=== PATIENT | female | born 1985 | race Caucasian/White ===

== ENCOUNTER 2024-02-22 08:14 | Emergency (ER) | payer BC, SELFPAY ==
--- NOTE | 2024-02-22 08:51 | ED.MUSCINJ ---
HPI-Injury
General
Chief Complaint: Musculo-Skeletal Complaint
Source: patient
Time Seen by Provider: 02/22/24 08:22
History of Present Illness-Injury
Initial Injury comments:
38yo right hand dominant female presenting for evaluation of left elbow pain. Patient was at work this morning about an hour ago. She slipped on a wet floor and landed on her bent left elbow. She heard a crack during the fall. She had some numbness
in the hand immediately after the fall which is gradually subsiding. She still has some tingling in her fingers. No other injuries sustained during the fall. No prior injuries to the left elbow.
Phy Exam
General Physical Exam
General Presentation: well appearing and no apparent distress
General age: appears stated age
General Skin: warm and dry
General Habitus: normal
General Mental: alert
ENT Exam
ENT Exam: normocephalic
Neurological Exam
Neurological Exam: alert
[place] Coma Scale
Eye Opening: Spontaneous
Verbal Response: Oriented
Motor Response: Obeys Commands
GCS Total Score: 15
Musculoskeletal Exam
Musculoskeletal Exam: other (L elbow: No deformity, soft tissue swelling, or ecchymosis noted. +Tenderness to lateral aspect of joint. ROM mildly decreased 2/2 pain. ROM of wrist and shoulder intact. 2+ radial pulse and sensation intact.)
Skin Exam
Skin Exam: normal color and warm/dry
Psychiatric Exam
Psychiatric Exam: normal mood/affect
Injury Course
Orders/Labs/Results
Orders:
Orders
02/22/24 08:20
Elbow, 3 view, Left [CR Elbow - Left Min 3 Views ] Urgent
Comment:
Reason For Exam: pt fell at work and landed on left elbow
MDM/Problems Addressed
Differential Diagnosis Includes:
38yoF here with L elbow pain after an injury. No deformity noted on exam. ROM is mildly decreased. LUE is neurovascularly intact. Differential diagnosis includes sprain, fracture, dislocation
X-rays of L elbow obtained. X-rays negative for acute osseous abnormalities. Supportive care discussed including RICE and PRN Tylenol/ibuprofen. Advised f/u with orthopedics if symptoms persist. She was discharged in stable condition.
*Critical Care Note
Total Time (30-74mins, 75-104mins- exclusive of procedures): Not Applicable
ED Attending Note
-
Portions of this chart may have been created with voice recognition software.� Occasional wrong word or��sound alike� substitutions may have occurred due to the inherent limitations of voice recognition software.
Discharge Plan
Departure
Patient Disposition: Home (Routine Discharge)
Date of Disposition: 02/22/24
Time of Disposition: 08:59
Patient with high blood pressure during this ER visit?: Yes
Discharge Problem:
Injury of left elbow
Instructions: Elbow Sprain ED
Referrals:
Ravin Nolasco MD [Active] -
Activity Restrictions/Additional Instructions:
Rest, ice, compress, and elevate your elbow. Take Tylenol and ibuprofen as needed for pain.
Please follow-up with orthopedics if symptoms persist.
Interventions
Interventions:
*Risk Screen - Suicide Last Done: 02/22/24 08:15
*Neglect/Abuse Screening Last Done: 02/22/24 08:15
*Nursing Disposition Last Done: 02/22/24 09:18
ED-Musculoskeletal Assessment Last Done: 02/22/24 09:18
Discharge Date and Time
Discharge Date/Time: 02/22/24 09:19
Print Language: ARMENIAN
[2024-02-22 09:10] VITALS: BP 128/77
== END 2024-02-22 09:19 | disposition home or self-care (01) ==
LOC: EMR 08:14
PROVIDERS: EMERGENCY PHYSICIAN Emergency Medicine; FAMILY PHYSICIAN Family Medicine
DX: S59.902A Unspecified injury of left elbow, initial encounter (principal); R20.0 Anesthesia of skin; R20.2 Paresthesia of skin; S50.02XA Contusion of left elbow, initial encounter; M79.89 Other specified soft tissue disorders; W01.0XXA Fall on same level from slipping, tripping and stumbling without subsequent striking against object, initial encounter; Y93.89 Activity, other specified; Y92.89 Other specified places as the place of occurrence of the external cause; Y99.0 Civilian activity done for income or pay; R03.0 Elevated blood-pressure reading, without diagnosis of hypertension
CPT/HCPCS: 99283; 73080

== ENCOUNTER 2024-04-04 10:23 | Emergency (ER) | payer BC, SELFPAY ==
[2024-04-04 10:34] VITALS: BP 143/80
--- NOTE | 2024-04-04 10:51 | ED.GENMED ---
History of Present Illness
<Holly Alcaraz PA-C - Last Filed: 04/04/24 15:34>
General
Chief Complaint: Problems
Source: patient
Exam Limitations: none
Time Seen by Provider: 04/04/24 10:39
Nursing documentation reviewed up to this point in time: agreed with
History of Present Illness
History of Present Illness:
38-year-old female presents emergency department today with concerns of vaginal bleeding for 2 the past 2 days. Patient states that this first started as light pink discharge that she noticed when she wiped when she used the bathroom. Patient
states that the bleeding progressed to kaitlyn drops of blood that she noticed in her underwear. Patient states that earlier today, the bleeding stopped. She has had mild cramping earlier but the cramping did resolve. She denies any abdominal pain,
nausea, vomiting. She denies any burning with urination. She denies low back pain. Her last menstrual period was February 24. She has an appointment with her OBGYN on Apr 26.
Review of Systems
<Holly Alcaraz PA-C - Last Filed: 04/04/24 15:34>
Review of Systems
All Other Systems: ROS reviewed and negative except as documented in HPI and ROS
Phy Exam
<Holly Alcaraz PA-C - Last Filed: 04/04/24 15:34>
Physical Exam
Physical Exam:
General: Patient is well appearing and in no acute distress; non-toxic
Skin: Warm and dry, no rashes or lesions
Head: Normocephalic, atraumatic
Eyes: Sclera non-icteric. EOMs intact.
Cardiac: Regular rate and rhythm, no murmurs
Peripheral Vascular: No lower extremity swelling or edema
Pulm: Normal respiratory effort
Abdomen: No abdominal tenderness to palpation
Neuro: CN II-XII intact, no focal neurologic deficits.
Psychiatric: Appropriate mood and affect.
Course
<Holly Alcaraz PA-C - Last Filed: 04/04/24 15:34>
Orders/Labs/Results
Orders:
Orders
04/04/24 10:36
Test Result ONCE
04/04/24 11:02
US W Transvaginal Urgent
Reason For Exam: vaginal bleeding, intermittent pelvic pain
04/04/24 11:06
Type And Crossmatch [Type+Screen] Urgent
Complete Blood Count/With Diff Urgent
Comprehensive Metabolic Panel Urgent
HCG, Beta Quantitative [Beta HCG Quantitative] Urgent
Is this a screen?: No
HCG, Serum Qualitative Screen Urgent
Urinalysis Reflex To Culture Urgent
Date Specimen was Collected: 04/04/24
Time Specimen was Collected: 10:36
Urine Microscopic Reflex Cult Urgent
04/04/24 14:13
ABO2 Urgent
BBK Wristband Number:
Associate notified that ABO2 has been ordered: [id number]
Date: 04/04/24
Time: 11:38
Special Education Math Teacher ID: [id number]
Abnormal Lab Results
04/04/24
11:06
Hgb 11.9 L g/dL
(12.0-16.0)
MCV 76.1 L fL
(81.0-99.0)
MCH 24.1 L pg
(27.0-31.0)
MCHC 31.7 L g/dL
(33.0-37.0)
RDW 17.5 H %
(11.5-14.5)
Ur Occult Blood Reflex 1+ A
(Negative)
Leukocyte Esterase Rfl Trace A
(Negative)
Urine RBC 3-6 A /HPF
(0-2)
Urine Bacteria (Reflex) Few A
(Negative)
04/04/24 11:06
04/04/24 11:06
Vital Signs
Initial and Last Documented VS:
Initial Vital Signs
Temp Pulse Resp BP Pulse Ox
98.5 F 86 16 143/80 98
04/04/24 10:34 04/04/24 10:34 04/04/24 10:34 04/04/24 10:34 04/04/24 10:34
Last Documented Vital Signs
Temp Pulse Resp BP Pulse Ox
98.5 F 72 18 119/78 100
04/04/24 10:34 04/04/24 13:49 04/04/24 13:49 04/04/24 13:49 04/04/24 13:49
Information
Weeks gestation: Weeks: (5 weeks 1 day)
Location: Location: (intrauterine)
<Bill Ellis, DO - Last Filed: 04/05/24 13:11>
Orders/Labs/Results
Orders:
Orders
04/04/24 10:36
Test Result ONCE
04/04/24 11:02
US W Transvaginal Urgent
Reason For Exam: vaginal bleeding, intermittent pelvic pain
04/04/24 11:06
Type And Crossmatch [Type+Screen] Urgent
Complete Blood Count/With Diff Urgent
Comprehensive Metabolic Panel Urgent
HCG, Beta Quantitative [Beta HCG Quantitative] Urgent
Is this a screen?: No
HCG, Serum Qualitative Screen Urgent
Urinalysis Reflex To Culture Urgent
Date Specimen was Collected: 04/04/24
Time Specimen was Collected: 10:36
Urine Microscopic Reflex Cult Urgent
04/04/24 14:13
ABO2 Urgent
BBK Wristband Number:
Associate notified that ABO2 has been ordered: [id number]
Date: 04/04/24
Time: 11:38
Special Education Math Teacher ID: [id number]
Abnormal Lab Results
04/04/24
11:06
Hgb 11.9 L g/dL
(12.0-16.0)
MCV 76.1 L fL
(81.0-99.0)
MCH 24.1 L pg
(27.0-31.0)
MCHC 31.7 L g/dL
(33.0-37.0)
RDW 17.5 H %
(11.5-14.5)
Ur Occult Blood Reflex 1+ A
(Negative)
Leukocyte Esterase Rfl Trace A
(Negative)
Urine RBC 3-6 A /HPF
(0-2)
Urine Bacteria (Reflex) Few A
(Negative)
04/04/24 11:06
04/04/24 11:06
Vital Signs
Initial and Last Documented VS:
Initial Vital Signs
Temp Pulse Resp BP Pulse Ox
98.5 F 86 16 143/80 98
04/04/24 10:34 04/04/24 10:34 04/04/24 10:34 04/04/24 10:34 04/04/24 10:34
Last Documented Vital Signs
Temp Pulse Resp BP Pulse Ox
98.5 F 72 18 119/78 100
04/04/24 10:34 04/04/24 13:49 04/04/24 13:49 04/04/24 13:49 04/04/24 13:49
<Holly Alcaraz PA-C - Last Filed: 04/04/24 15:34>
MDM/Problems Addressed
Differential Diagnosis Includes:
see below
MDM/Problems Addressed:
NUMBER AND COMPLEXITY OF PROBLEMS ADDRESSED AT THE ENCOUNTER
� Chronic conditions affecting care: n/a
� Acute Exacerbation and/or Progression of Chronic Illness:
� Differential Diagnosis includes: implantation bleeding, ectopic , spontaneous
AMOUNT AND/OR COMPLEXITY OF DATA TO BE REVIEWED AND ANALYZED
� I performed an independent evaluation of and my interpretation is:
Laboratory Studies: HCG 3339.00 mIU/ml
Other:
� Review of other/old records: Reviewed previous ER physician documentation from 02/22/2024, patient seen for left elbow pain
� Clinical information was obtained by an independent historian: n/a
� Prescriptions/Medications Considered but not given: none
� Further testing considered but not performed: n/a
RISK OF COMPLICATIONS AND/OR MORBIDITY OR MORTALITY OF PATIENT MANAGEMENT
� Social determinants of health affecting care: none
� Discussion with other providers: ER attending
� Escalation of care including admission/observation vs risk of discharge considered:
38-year-old female G2, P1 presents emergency today with concerns of vaginal bleeding. She is confirmed by home test. She has not yet seen her HEEL BLACKER. She follows with [facility]. She is well-appearing on exam in no acute
distress. She has no abdominal tenderness palpation. Her bleeding has stopped upon arrival to emergency department. Had a urinalysis which is not concerning for infection, she is O+, no indication for RhoGAM at this time. Intrauterine
gestational sac in the endometrial canal with no evidence of pole or yolk sac. Did discuss findings with patient. Discussed prompt/sooner follow-up with her HEEL BLACKER. Patient stable for discharge.
<Holly Alcaraz PA-C - Last Filed: 04/04/24 15:34>
*Critical Care Note
Total Time (30-74mins, 75-104mins- exclusive of procedures): Not Applicable
ED Attending Note
<Holly Alcaraz PA-C - Last Filed: 04/04/24 15:34>
-
Portions of this chart may have been created with voice recognition software.� Occasional wrong word or��sound alike� substitutions may have occurred due to the inherent limitations of voice recognition software.
<Bill Ellis DO - Last Filed: 04/05/24 13:11>
ED Attending Note
Patient seen and examined by attending physician: Yes
I performed a history and physical exam of patient and discussed management with resident, I reviewed resident's note and agree with documented findings and plan of care.: Yes
ED Attending Note:
I reviewed and agree with plan by Holly Alcaraz. My exam reveals 38-year-old female in no acute distress. Ultrasound and hCG pending.
Discharge Plan
Departure
Patient Disposition: Home (Routine Discharge)
Date of Disposition: 04/04/24
Time of Disposition: 15:08
Patient with high blood pressure during this ER visit?: Yes
Condition: Good
Discharge Problem:
Vaginal bleeding, First trimester
Instructions: Bleeding in early
Referrals:
Narciso Ontiveros DO [Family Provider] -
Stand Alone Forms: Return to Work
Activity Restrictions/Additional Instructions:
Please call your HEEL BLACKER to schedule a sooner follow-up appointment. You will need prompt repeat beta hcg levels.
PLEASE RETURN EMERGENCY DEPARTMENT SHOULD YOU DEVELOP LIGHTHEADEDNESS, DIZZINESS, PERSISTENT BLEEDING, GOING THROUGH MORE THAN 1-2 PADS PER HOUR, ABDOMINAL PAIN, CHEST PAIN, SHORTNESS OF BREATH, OR ANY OTHER SIGNS OR SYMPTOMS CONCERNING TO YOU.
Interventions
Interventions:
*Risk Screen - Suicide Last Done: 04/04/24 10:34
*General Assessment Last Done: 04/04/24 11:11
*Neglect/Abuse Screening Last Done: 04/04/24 10:34
ED- Fall Risk Assessment Last Done: 04/04/24 11:11
*ED COVID-19 Vaccine History Last Done: 04/04/24 11:11
*Nursing Disposition Last Done: 04/04/24 15:53
ED-Female Genitourinary Assessment Last Done: 04/04/24 11:11
Discharge Date and Time
Discharge Date/Time: 04/04/24 15:54
Print Language: YI
--- NOTE | 2024-04-04 11:00 | EDRN ---
Oliver Barakat PA in to see pt at this time.
[2024-04-04 11:17] LABS: % Basophils 0.7 % (0-2); % Eosinophils 1.2 % (0-6); % Immature Granulocytes 0.3 % (0-0.5); % Lymphocytes 23.3 % (20.5-51.1); % Monocytes 7.3 % (1.7-9.3); % Neutrophils 67.2 % (42.2-75.2); Absolute Basophils 0.1 10^3/uL (0-0.2); Absolute Eosinophils 0.1 10^3/uL (0-0.7); Absolute Lymphocytes 1.8 10^3/uL (1.2-3.4); Absolute Monocytes 0.6 10^3/uL (0.1-0.6); Absolute Neutrophils 5.2 10^3/uL (1.4-6.5); Hematocrit 37.5 % (37.0-47.0); Hemoglobin 11.9 g/dL (12.0-16.0); Mean Corp Hgb Conc. 31.7 g/dL (33.0-37.0); Mean Corpuscular Hgb 24.1 pg (27.0-31.0); Mean Corpuscular Volume 76.1 fL (81.0-99.0); Mean Platelet Volume 9.7 fL (7.4-10.4); Nucleated Red Blood Cells % 0 %; Platelet Count 342 10^3/uL (130-400); Red Blood Cell Count 4.93 10^6/uL (4.20-5.40); Red Cell Dist. Width 17.5 % (11.5-14.5); White Blood Cell Count 7.7 10^3/uL (4.8-10.8)
[2024-04-04 11:20] LABS: Urine Albumin Negative (Neg - Trace); Urine Bilirubin Negative (Negative); Urine Character Clear (Clear); Urine Color Yellow; Urine Glucose Negative (Negative); Urine Ketone Negative (Negative); Urine Leukocyte Trace (Negative); Urine Nitrite Negative (Negative); Urine Occult Blood 1+ (Negative); Urine Urobilinogen Negative (Neg - 1+)
[2024-04-04 11:25] VITALS: BMI 38.0
[2024-04-04 11:31] LABS: HCG, Serum Qualitative Screen Positive
--- NOTE | 2024-04-04 11:35 | EDRN ---
Dr. Ellis in to see pt at this time.
[2024-04-04 11:37] LABS: ALT (SGPT) 29 U/L (0-35); AST (SGOT) 29 U/L (14-36); Albumin 4.6 g/dl (3.5-5.0); Alkaline Phosphatase 76 U/L (38-126); Blood Urea Nitrogen 13 mg/dl (7-17); Calcium 9.1 mg/dl (8.4-10.2); Carbon Dioxide 28 mmol/L (22-30); Chloride 101 mmol/L (98-107); Estimated Creatinine Clearance > 125 ml/min; Glucose 94 mg/dl (70-99); Potassium 3.8 mmol/L (3.5-5.1); Sodium 139 mmol/L (135-145); Total Bilirubin 0.4 mg/dl (0.2-1.3); Total Protein 7.8 g/dl (6.3-8.2); eGFR > 60.00
[2024-04-04 11:50] LABS: Urine Amorphous Seen; Urine Mucus Many; Urine Squamous Cell >30 /LPF (Few)
[2024-04-04 11:53] LABS: Urine Bacteria Few (Negative)
[2024-04-04 13:49] VITALS: BP 119/78
== END 2024-04-04 15:54 | disposition home or self-care (01) ==
LOC: EMR 10:23
PROVIDERS: EMERGENCY PHYSICIAN Emergency Medicine; FAMILY PHYSICIAN Family Medicine
DX: O26.851 Spotting complicating pregnancy, first trimester (principal); Z3A.01 Less than 8 weeks gestation of pregnancy; R03.0 Elevated blood-pressure reading, without diagnosis of hypertension
CPT/HCPCS: 99284; 76801; 76817; 80053; 81003; 81015; 84702; 84703; 85025; 86850; 86900; 86901